=== PATIENT | female | born 1985 | race African-American/Black ===

== ENCOUNTER → 2019-12-26 | Outpatient (CLI) | payer OTHER ==
[~2019-12-26] MED LIST: AYGESTIN5 MG PO; BCP PO; CLEOCIN HCL300 MG PO; CLINDAMYCIN300 MG PO; CRUTCHES MC; FEOSOL200 MG PO; LEVORA-28 30 MC1 TA1; MONONESSA 35 MC1 TA1 PO; MOTRIN 600600 MG/TAB PO; NO HOME MEDICATIONS; PERCOCET 325 MG1 TA2 PO; PREDNISONE20 MG PO; PRENATAL1 TA1 PO; PRIL40 PO; PROAIR HFA0.09 MG/AC IH; RT ADVAIR 228 DISKUS; RT ADVAIR 228 DISKUS IH; SINGULAIR 110 MG/TAB; SINGULAIR 110 MG/TAB PO; TUSS PO; ULTRAM 50MG TAB50 MG PO; ZITHROMAX Z PA250 MG PO
== END ==
LOC: COL.RAD 14:07
DX: S93.601D Unspecified sprain of right foot, subsequent encounter (principal); M77.30 Calcaneal spur, unspecified foot; M72.2 Plantar fascial fibromatosis

== ENCOUNTER 2020-03-05 12:20 | Emergency (ER) | payer OTHER ==
[~2020-03-05] VITALS: Ht 170.2 cm; Wt 124.1 kg
[2020-03-05 12:28] VITALS: BP 134/86; TEMP 98.3
[2020-03-05] MEDS ORDERED: NORCO 325 MG-51 TAB PO (13:01)
[2020-03-05 14:12] VITALS: PULSE 75
== END 2020-03-05 14:06 | disposition home or self-care (01) ==
LOC: COL.ER 12:20
DX: S52.501A Unspecified fracture of the lower end of right radius, initial encounter for closed fracture (principal); S63.501A Unspecified sprain of right wrist, initial encounter; J45.909 Unspecified asthma, uncomplicated; W10.9XXA Fall (on) (from) unspecified stairs and steps, initial encounter; Y92.009 Unspecified place in unspecified non-institutional (private) residence as the place of occurrence of the external cause